=== PATIENT | female | born 1985 | race Caucasian/White ===

== ENCOUNTER → 2020-08-08 | Outpatient (CLI) | payer BC ==
--- NOTE | 2020-08-11 13:10 | MRI ---
Study: MRI of the Left Knee. Indication: PAIN IN LEFT KNEE Technique: Multiplanar, multi sequence MRI of the left knee was obtained without intravenous contrast. Comparison: None. Findings: ACL, PCL, MCL, and lateral collateral ligament complex intact. Medial meniscus and lateral meniscus intact. No high-grade defect medial or lateral knee compartment. Small contusions inferomedial patella and lateral margin lateral femoral condyle indicating sequela of a patellar dislocation-partial relocation event. Mild lateral patellar subluxation at this time with prominent lateral patellar tilt. Femoral trochlea shallow. TT-TG distance measures 20 mm. Edema at the superolateral aspect Hoffa's fat pad. Attenuation of the femoral an patellar attachment of the medial retinaculum with suspected partial-thickness tearing. Patellofemoral extensor mechanism intact. Heterogeneous areas of grade 2 and 3 chondral fibrillation of the patella, most pronounced medially. No full-thickness chondral defect. Moderate size knee effusion. Scattered subcutaneous edema anteriorly. Impression: Sequela of acute patellar dislocation-partial relocation event with contusions of the patella and lateral femoral condyle. 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 Moderate size knee effusion. Partial thickness tearing femoral and patellar attachments of the medial retinaculum. Electronically signed by: Durga Archibald MD 08/11/2020 1:08 PM CDT
== END ==
LOC: MRI 10:51
PROVIDERS: ATTEND Family Medicine
DX: S83.005S Unspecified dislocation of left patella, sequela (principal); S86.812A Strain of other muscle(s) and tendon(s) at lower leg level, left leg, initial encounter; M94.8X6 Other specified disorders of cartilage, lower leg; M25.462 Effusion, left knee

== ENCOUNTER → 2020-08-11 | Outpatient (CLI) | payer BC ==
--- NOTE | 2020-08-11 11:22 | RAD ---
EXAM DESCRIPTION: Knee,Left 1 or 2 Views CLINICAL HISTORY: 34 years Female, PAIN IN LEFT KNEE COMPARISON: None. Findings: One views/radiographs Location: Left knee No acute fracture or dislocation. Joint spaces are maintained. No focal soft tissue swelling. IMPRESSION: No evidence of acute process in the left knee. Electronically signed by: Rey Santana MD 08/11/2020 11:20 AM CDT
--- NOTE | 2020-08-11 11:23 | RAD ---
EXAM DESCRIPTION: Pelvis CLINICAL HISTORY: 34 years Female, HIP PAIN LEFT COMPARISON: None. TECHNIQUE: Single view radiograph of the pelvis. IMPRESSION: Partially obscured sacrum and coccyx by overlying bowel. No acute displaced fracture. No dislocation. No appreciable arthrosis of the hip. Intact pubic joint. Electronically signed by: Wesley Smith MD 08/11/2020 11:21 AM CDT
== END ==
LOC: RAD 08:49
PROVIDERS: ATTEND Orthopaedic Surgery
DX: M25.552 Pain in left hip (principal); M25.562 Pain in left knee